=== PATIENT | female | born 1970 | race Caucasian/White ===

== ENCOUNTER 2020-12-10 15:16 | Outpatient (CLI) | payer OTHER ==
[2020-12-10 16:17] LABS: BASOPHILS % (AUTO) 1 % (0-1); EOSINOPHILS % (AUTO) 5 % (1-7); LYMPHOCYTES % (AUTO) 29 % (22-44); MEAN CORPUSCULAR HEMOGLOBIN 28.2 pg (27.0-34.8); MEAN CORPUSCULAR HGB CONC 32.7 g/dL (32.4-35.8); MEAN PLATELET VOLUME 7.6 fL (7.4-10.4); MONOCYTES % (AUTO) 9 % (2-9); NEUTROPHILS % (AUTO) 57 % (42-75); PLATELET COUNT 341 x10^3/uL (130-400); RED CELL DISTRIBUTION WIDTH 13.5 % (9.6-15.2)
[2020-12-10 16:27] LABS: CALCIUM 8.6 mg/dL (8.5-10.1)
[2020-12-10 16:46] LABS: % IRON SATURATION 8 % (20-55); ALANINE AMINOTRANSFERASE 44 U/L (12-78); ALKALINE PHOSPHATASE 102 U/L (45-117); ANION GAP 6 mmol/L (5-15); BILIRUBIN,TOTAL 0.1 mg/dL (0.2-1.0); CHLORIDE 112 mmol/L (98-107); CHOLESTEROL, TOTAL 175 mg/dL (140-239); CREATININE 0.65 mg/dL (0.55-1.02); HDL CHOL % 34 % (28-40); HDL CHOLESTEROL (DIRECT) 59 mg/dL (40-60); IRON LEVEL 28 mcg/dL (50-170); LDL CHOLESTEROL,CALCULATED 69 mg/dL (54-169); LDL/HDL RATIO 1.2 (0.5-3.0); PREALBUMIN 25.5 mg/dL (20.0-40.0); TOTAL IRON BINDING CAPACITY 367 mcg/dL (250-450); TOTAL PROTEIN 7.2 g/dL (6.4-8.2); TRANSFERRIN 266 mg/dL (200-360); TRIGLYCERIDES 233 mg/dL (50-200); VLDL CHOLESTEROL 47 mg/dL (0-25)
[2020-12-11] MEDS ORDERED: OMEP20TA62 PO (08:40)
[2020-12-11] MEDS ORDERED: DICL25TA PO (08:40)
[2020-12-11] MEDS ORDERED: PNV1TABL11 PO (08:40)
[2020-12-11] MEDS ORDERED: FLUO10CA15 PO (08:40)
[2020-12-11] MEDS ORDERED: FAMO-79 PO (08:40)
[2020-12-11] MEDS ORDERED: ATEN50TA41 PO (08:40)
== END 2020-12-10 23:59 | disposition home or self-care (01) ==
LOC: STAR 15:16
PROVIDERS: ATTEND Student in an Organized Health Care Education/Training Program
DX: Z01.818 Encounter for other preprocedural examination (principal)
CPT/HCPCS: 36415; 71046; 80053; 80061; 82306; 82607; 82728; 82746; 83540; 83550; 83970; 84134; 84425; 84466; 85025; 93005

== ENCOUNTER 2020-12-18 05:32 | Inpatient (IN) | payer OTHER, BC ==
[~2020-12-18] VITALS: Ht 152.4 cm; Wt 101.4 kg
[~2020-12-18 05:32] MED LIST: ATEN50TA41 PO; DICL25TA PO; FAMO-79 PO; FLUO10CA15 PO; OMEP20TA62 PO; PNV1TABL11 PO
[2020-12-18] MEDS ORDERED: CHLORHEXIDINE 15 ML UDC PO ONE (06:30)
[2020-12-18] MEDS ORDERED: LACTATED RINGERS 1,000 ML IV SCH (06:30)
[2020-12-18] MEDS ORDERED: EPINEPHRINE 1 MG/ML, 1ML ONE (06:45)
[2020-12-18] MEDS ORDERED: BUPIVACAINE/PF 0.5% ONE (06:45)
[2020-12-18 06:50] LABS: HCG UR SG 1.025 (1.003-1.030)
[2020-12-18] MEDS ORDERED: FENTANYL PF 250 MCG/5ML ONE (07:16)
[2020-12-18] MEDS ORDERED: MIDAZOLAM 1 MG/ML, 2ML ONE (07:16)
[2020-12-18] MEDS ORDERED: SCOPOLAMINE 1MG PATCH TD ONE (07:26)
[2020-12-18] MEDS ORDERED: OXYcodone 5 MG/5 ML ORAL.SOL UDC PO PRN (08:00)
[2020-12-18] MEDS ORDERED: PROMETHAZINE 25 MG/ML, 1ML IVPush PRN (08:00)
[2020-12-18] MEDS ORDERED: LABETALOL 5MG/ML, 20ML IV PRN (08:00)
[2020-12-18] MEDS ORDERED: FENTANYL PF 100 MCG/2ML IV PRN (08:00)
[2020-12-18] MEDS ORDERED: MIDAZOLAM 1 MG/ML, 2ML IV PRN (08:00)
[2020-12-18] MEDS ORDERED: ACETAMINOPHEN 325 MG TABLET PO PRN (08:00)
[2020-12-18] MEDS ORDERED: HYDROmorphone 1 MG/ML, 1ML INJ IVPush PRN (08:00)
[2020-12-18] MEDS ORDERED: MEPERIDINE/PF 25MG/0.5ML IVPush PRN (08:00)
[2020-12-18] MEDS ORDERED: LIDOCAINE-MPF 2% ,5ML ONE ×2 (08:11→09:41)
[2020-12-18] MEDS ORDERED: PROPOFOL 10 MG/ML, 20ML ONE (09:41)
[2020-12-18] MEDS ORDERED: DEXAMETHASONE 4 MG/ML, 5ML ONE (09:41)
[2020-12-18] MEDS ORDERED: CEFAZOLIN 1,000 MG ONE (09:41)
[2020-12-18] MEDS ORDERED: NEOSTIGMINE 1 MG/ML, 10ML ONE (09:41)
[2020-12-18] MEDS ORDERED: ROCURONIUM 10MG/ML,5ML ONE (09:41)
[2020-12-18] MEDS ORDERED: ONDANSETRON 2MG/ML, 2ML ONE (09:41)
[2020-12-18] MEDS ORDERED: GLYCOPYRROLATE 0.2MG/1ML, 5ML ONE (09:41)
[2020-12-18] MEDS ORDERED: FENTANYL PF 100 MCG/2ML ONE ×2 (09:57→10:30)
[2020-12-18] MEDS ORDERED: CELE100C PO (10:11)
[2020-12-18] MEDS ORDERED: ACET325T26 PO (10:11)
[2020-12-18] MEDS ORDERED: OXYC5SOL8 PO (10:11)
[2020-12-18] MEDS ORDERED: POLY17PO5 PO (10:11)
[2020-12-18] MEDS ORDERED: OMEP-110 PO (10:11)
[2020-12-18] MEDS ORDERED: LABETALOL 5MG/ML, 20ML ONE (10:22)
[2020-12-18] MEDS ORDERED: ACETAMINOPHEN 650 MG/20.3 ML UDC ONE (10:30)
[2020-12-18] MEDS ORDERED: OXYcodone 5 MG/5 ML ORAL.SOL UDC ONE (10:30)
[2020-12-18 11:18] VITALS: BP 152/87
[2020-12-18] MEDS ORDERED: PHENOL THROAT SPRAY BOTTLE MM PRN (11:30)
[2020-12-18] MEDS ORDERED: DIPHENHYDRAMINE 50 MG/ML, 1ML IV PRN (11:30)
[2020-12-18] MEDS ORDERED: ENALAPRILAT 1.25 MG/ML, 2ML IV PRN (11:30)
[2020-12-18] MEDS ORDERED: LACTATED RINGERS 500 ML IVBOLUS PRN (11:30)
[2020-12-18] MEDS ORDERED: ONDANSETRON 2MG/ML, 2ML IV PRN (11:30)
[2020-12-18] MEDS ORDERED: DIPHENHYDRAMINE 25 MG CAPSULE PO PRN (11:30)
[2020-12-18] MEDS: POTASSIUM CHLORIDE 20 MEQ in LACTATED RINGERS 1,000 ML IV SCH ×2 (12:21→23:21)
[2020-12-18] MEDS: HYDROcodone/APAP 7.5-325MG/15ML UDC PO PRN ×2 (13:39→20:16)
[2020-12-18 14:07] VITALS: BP 152/76
[2020-12-18] MEDS: ACETAMINOPHEN 100 ML IV SCH ×2 (16:09→22:42)
[2020-12-18] MEDS: ENOXAPARIN 30 MG/0.3 ML SQ SCH (19:08)
[2020-12-18 20:48] VITALS: BP 136/84
[2020-12-19 00:26] VITALS: BP 148/85
[2020-12-19] MEDS: HYDROcodone/APAP 7.5-325MG/15ML UDC PO PRN ×2 (00:58→09:37)
[2020-12-19 04:38] VITALS: BP 136/85
[2020-12-19 05:37] LABS: BASOPHILS % (AUTO) 0 % (0-1); EOSINOPHILS % (AUTO) 0 % (1-7); LYMPHOCYTES % (AUTO) 14 % (22-44); MEAN CORPUSCULAR HEMOGLOBIN 28.3 pg (27.0-34.8); MEAN CORPUSCULAR HGB CONC 33.2 g/dL (32.4-35.8); MEAN PLATELET VOLUME 7.6 fL (7.4-10.4); MONOCYTES % (AUTO) 8 % (2-9); NEUTROPHILS % (AUTO) 77 % (42-75); PLATELET COUNT 363 x10^3/uL (130-400); RED BLOOD COUNT 4.52 x10^6/uL (3.82-5.3); RED CELL DISTRIBUTION WIDTH 13.4 % (9.6-15.2)
[2020-12-19 05:45] LABS: ALANINE AMINOTRANSFERASE 244 U/L (12-78); ALBUMIN 3.2 g/dL (3.4-5.0); ANION GAP 8 mmol/L (5-15); CALCIUM 8.7 mg/dL (8.5-10.1); CHLORIDE 107 mmol/L (98-107); CREATININE 0.68 mg/dL (0.55-1.02)
[2020-12-19 05:47] LABS: ALKALINE PHOSPHATASE 82 U/L (45-117); BILIRUBIN,TOTAL 0.3 mg/dL (0.2-1.0)
[2020-12-19 07:21] VITALS: BP 148/80
[2020-12-19] MEDS: ENOXAPARIN 30 MG/0.3 ML SQ SCH (08:00)
[2020-12-19] MEDS: POTASSIUM CHLORIDE 20 MEQ in LACTATED RINGERS 1,000 ML IV SCH (09:12)
== END 2020-12-19 10:31 | disposition home or self-care (01) | DRG 621 ==
LOC: ORIP 05:32 → 4NE 11:16
PROVIDERS: ADMIT Student in an Organized Health Care Education/Training Program; ATTEND Student in an Organized Health Care Education/Training Program
PROC: 0BQT4ZZ Repair Diaphragm, Percutaneous Endoscopic Approach (ICD-10-PCS; 2020-12-18)
PROC: 0D164ZA Bypass Stomach to Jejunum, Percutaneous Endoscopic Approach (ICD-10-PCS; principal; 2020-12-18 07:30)
DX: E66.01 Morbid (severe) obesity due to excess calories (principal); K44.9 Diaphragmatic hernia without obstruction or gangrene; Z68.41 Body mass index [BMI] 40.0-44.9, adult; Z20.822 Contact with and (suspected) exposure to COVID-19
CPT/HCPCS: 36415; J3490; S0020; 80053; 81025; 85025; 87635; G0378; J0131; J0171; J0690; J1100; J1650; J2250; J2405; J2704; J2710; J3010; J3480; J7120